=== PATIENT | female | born 1960 | race Caucasian/White ===

== ENCOUNTER 2018-07-04 19:17 | Emergency (ER) | payer BC ==
[2018-07-04] MEDS ORDERED: Ondansetron ODT 4 MG TAB ONE (19:42)
== END 2018-07-04 20:52 | disposition home or self-care (01) ==
LOC: MADERS 19:17
DX: K52.9 Noninfective gastroenteritis and colitis, unspecified (principal); I10 Essential (primary) hypertension; Z79.899 Other long term (current) drug therapy
CPT/HCPCS: 99283; Q0162

== ENCOUNTER 2021-02-21 17:49 | Emergency (ER) | payer BC, OTHER ==
[~2021-02-21 17:49] MED LIST: Iopamidol 370 76% 100 ML VIAL ONE
[2021-02-21] MEDS ORDERED: Morphine 4 MG/ML VIAL ONE (18:53)
[2021-02-21 19:21] LABS: #Basophils 0.1 thou/uL (0.0-0.2); #Eosinphils 0.2 thou/uL (0.0-0.7); #Lymphocytes 1.8 thou/uL (1.20-3.40); #Monocytes 0.6 thou/uL (0.11-0.59); #Neutrophils 5.9 thou/uL (1.40-6.50); %Basophils 0.8 % (0.0-1.0); %Eosinophils 1.9 % (0.0-10.0); %Lymphocytes 20.6 % (21.0-51.0); %Monocytes 7.5 % (0.0-10.0); %Neutrophils 69.2 % (42.0-75.0); Hemoglobin 14.2 g/dL (12.0-16.0); Mean Corpuscular HGB CONC 31.2 g/dL (32.0-36.0); Mean Corpuscular Hemoglobin 29.2 pg (27.0-31.0); Mean Corpuscular Volume 93.5 fL (78.0-98.0); Mean Platelet Volume 8.6 fL (7.4-10.4); Platelet Count 303 thou/uL (130-400); RBC Distribution Width 12.3 % (11.5-14.5); Red Blood Cell (RBC) Count 4.88 mill/uL (4.20-5.40); White Blood Cell (WBC) Count 8.6 thou/uL (4.8-10.8)
[2021-02-21 19:25] LABS: Prothrombin Time 12.6 sec (12.0-14.7)
[2021-02-21 19:35] LABS: ALT (SGPT) 25 U/L (8-55); AST (SGOT) 26 U/L (5-34); Albumin 4.1 g/dL (3.4-4.8); Alkaline Phosphatase 54 U/L (40-110); Anion Gap 16 mmol/L (10-20); BUN (Urea Nitrogen) 16 mg/dL (9.8-20.1); Bilirubin, Total 0.5 mg/dL (0.2-1.2); Calc. Creatinine Clearance 0 mL/min (70-130); Calcium 9.7 mg/dL (7.8-10.44); Carbon Dioxide 26 mmol/L (23-31); Chloride 104 mmol/L (98-107); Globulin 2.9 g/dL (2.4-3.5); Glucose 98 mg/dL (80-115); Sodium 142 mmol/L (136-145)
[2021-02-21 20:34] LABS: Magnesium 1.7 mg/dL (1.6-2.6)
== END 2021-02-21 21:24 | disposition home or self-care (01) ==
LOC: MADERS 17:49
DX: S20.212A Contusion of left front wall of thorax, initial encounter (principal); E06.3 Autoimmune thyroiditis; I10 Essential (primary) hypertension; E03.9 Hypothyroidism, unspecified; M06.9 Rheumatoid arthritis, unspecified; Z87.442 Personal history of urinary calculi; Z79.899 Other long term (current) drug therapy; V86.99XA Unspecified occupant of other special all-terrain or other off-road motor vehicle injured in nontraffic accident, initial encounter
CPT/HCPCS: 36415; 70450; 71260; 74177; 80053; 83735; 84100; 85025; 85610; 96374; J2270; Q9967

== ENCOUNTER 2022-02-20 07:55 | Emergency (ER) | payer BC | END 2022-02-20 09:50 | disposition home or self-care (01) | LOC: MADERS 07:55 | DX: J45.909 Unspecified asthma, uncomplicated (principal); I10 Essential (primary) hypertension; E03.9 Hypothyroidism, unspecified; M06.9 Rheumatoid arthritis, unspecified; E06.3 Autoimmune thyroiditis; Z20.822 Contact with and (suspected) exposure to COVID-19; Z87.442 Personal history of urinary calculi | CPT/HCPCS: 71046; 93005; 94640; 94664; 94760; J7620; U0003; U0005 ==

== ENCOUNTER 2023-11-24 14:16 | Emergency (ER) | payer BC ==
[2023-11-24 14:49] LABS: #Basophils 0.1 thou/uL (0.0-0.2); #Eosinphils 0.1 thou/uL (0.0-0.7); #Lymphocytes 1.6 thou/uL (1.20-3.40); #Monocytes 0.6 thou/uL (0.11-0.59); #Neutrophils 4.2 thou/uL (1.40-6.50); %Basophils 0.9 % (0.0-1.0); %Eosinophils 1.8 % (0.0-10.0); %Lymphocytes 24.3 % (21.0-51.0); Hematocrit 41.6 % (36.0-47.0); Hemoglobin 12.4 g/dL (12.0-16.0); Mean Corpuscular HGB CONC 29.8 g/dL (32.0-36.0); Mean Corpuscular Hemoglobin 28.1 pg (27.0-31.0); Mean Corpuscular Volume 94.4 fl (78.0-98.0); Mean Platelet Volume 7.7 fL (7.4-10.4); Platelet Count 260 10x3/uL (130-400); RBC Distribution Width 12.7 % (11.5-14.5); White Blood Cell (WBC) Count 6.6 10x3/uL (4.8-10.8)
[2023-11-24 15:01] LABS: INR-International Normal Ratio 1.1; Prothrombin Time 14.3 sec (12.0-14.7)
[2023-11-24 15:02] LABS: Anion Gap 13 mmol/L (10-20); BUN (Urea Nitrogen) 18 mg/dL (9.8-20.1); Calc. Creatinine Clearance 0 mL/min (70-130); Calcium 9.2 mg/dL (7.8-10.44); Carbon Dioxide 22 mmol/L (23-31); Chloride 110 mmol/L (98-107); Estimated GFR 95; Glucose 117 mg/dL (80-115); Magnesium 1.7 mg/dL (1.6-2.6); PTT 30.6 sec (22.9-36.1); Potassium 4.4 mmol/L (3.5-5.1); Sodium 141 mmol/L (136-145)
[2023-11-24 15:04] LABS: D-Dimer Test 0.32 mcg/mL (0.27-0.43); Troponin I Less than 0.010 ng/mL (< 0.028)
== END 2023-11-24 15:50 | disposition home or self-care (01) ==
LOC: MADERS 14:16
DX: I95.1 Orthostatic hypotension (principal); E86.0 Dehydration; I10 Essential (primary) hypertension; E05.90 Thyrotoxicosis, unspecified without thyrotoxic crisis or storm
CPT/HCPCS: 70450; 80048; 83735; 84443; 84484; 85025; 85379; 85610; 85730; 93005; 96360